=== PATIENT | female | born 1950 | race Caucasian/White ===

== ENCOUNTER 2016-06-04 12:55 | Day surgery (SDC) | payer MEDICARE ==
[~2016-06-04] VITALS: Ht 160 cm; Wt 78.0 kg
[~2016-06-04 12:55] MED LIST: 0.9% Sodium Chloride 1,000 ML IV SCH; ACET1TAB12 PO; ASPI325T32 PO; BUSP5TAB3 PO; CALC-766 PO; CHOL200047 PO; CHOL400T41 PO; ESTR1PAT13 TD; FLUT16SP2 NS; HYDR-3605 PO; HYDR25TA4 PO; KLO1T PO; MELO-253 PO; MULT-1007 PO; MV-M1TAB20 PO; NITR100 PO; OMEG100T PO; OMEP20TA86 PO; PRA20 PO; QUET25TA PO; SERT25TA6 PO; Sodium Chloride LOK Flush 10 mL Syringe IV PRN; UBID10CA4 PO; [UNRECOGNIZED DRUG - CODE] PO; fentaNYL-PF 50 mCg/mL 2 mL Inj IVPUSH PRN
[2016-06-04 13:44] VITALS: BP 137/73; PULSE 79; RESP 14; O2SAT 99
[2016-06-04 15:47] VITALS: BP 129/67; PULSE 89; RESP 16; O2SAT 96
[2016-06-04 15:57] VITALS: BP 146/67; PULSE 79; RESP 16; O2SAT 99
[2016-06-04 16:07] VITALS: BP 134/69; PULSE 84; RESP 16; O2SAT 99
--- NOTE | 2016-06-04 21:31 | ENDO ---
[address] [address] ENDOSCOPY PROCEDURE PATIENT: SHAHID BROWNLEE : 1950 MR#: [id number] ADMIT: 06/04/2016 JOB ID: [id number] PROCEDURE PERFORMED: Esophagogastroduodenoscopy. INDICATION: Dysphagia. Patient with a history of Hadley's esophagus who has undergone a Yohannes fundoplication. She has had ongoing episodic dysphagia since her Yohannes fundoplication. That was performed several years ago. She denies any regurgitation. INSTRUMENT USED: GIF-H180J. The patient's ASA classification is II. Mallampati score is II. MEDICATIONS: 1. Versed 8 mg. 2. Fentanyl 150 mcg. PROCEDURE DETAILS: After informed consent was obtained, the patient was brought into the GI suite, where she was placed on oxygen via nasal cannula and monitored with continuous pulse oximeter, telemetry, and blood pressure monitoring. A time-out was performed. Then, she was placed in a left lateral decubitus position and medications were administered for sedation. A bite block was placed. The standard EGD scope was then inserted through the bite block and advanced without difficulty to the second portion of the duodenum. FINDINGS: 1. Normal-appearing duodenal bulb, first and second portion. 2. Normal-appearing pylorus. 3. In the antrum and body of stomach, there was mild erythema suggestive of gastritis. Multiple random biopsies were obtained. 4. Retroflexed views in the gastric body revealed changes consistent with Yohannes fundoplication. 5. The GE junction was at approximately 40 cm and there were two short tongues of salmon-colored mucosa arising from the GE junction. Multiple biopsies were obtained. The remainder of the esophagus was otherwise unremarkable. IMPRESSION: 1. Changes consistent with prior Yohannes fundoplication. 2. Irregular gastroesophageal junction. RECOMMENDATIONS: Await biopsy results. Continue PPI daily. Proceed to colonoscopy. COMPLICATIONS: None. ESTIMATED BLOOD LOSS: Less than 5 mL. PROCEDURE PERFORMED: Colonoscopy. INDICATION: Colon cancer screening. Please see above for ASA classification, Mallampati score, and medications. INSTRUMENT USED: PCF-H180AL. Prep quality was fair. PROCEDURE DETAILS: After completion of the EGD exam, a digital rectal exam was performed which was unremarkable. The colonoscope was then inserted into the rectum and advanced under direct visualization to the terminal ileum, which was identified by the villous appearing mucosa of terminal ileum and ileocecal valve. Unable to identify appendiceal orifice secondary to severe melanosis coli. Once the cecum was reached, the colonoscope was then withdrawn back into the rectum as the mucosa and lumen were examined. In the rectum, retroflexion was performed. Following retroflexion, remaining air in the rectum was suctioned, and procedure was completed. FINDINGS: 1. Melanosis coli throughout the entire colon and rectum. 2. Three diminutive ascending colon polyps which were removed with cold biopsy forceps. 3. Normal-appearing terminal ileum. IMPRESSION: 1. Three ascending colon polyps. 2. Melanosis coli. RECOMMENDATIONS: Repeat colonoscopy pending polyp pathology results. COMPLICATIONS: None. ESTIMATED BLOOD LOSS: Less than 5 mL. MTDD
--- NOTE | 2016-06-07 13:49 | PATH ---
SURGICAL PATHOLOGY Attending Physician:Honorio Calix CASE STATUS: Signed Out PATIENT NAME: SHAHID BROWNLEE PID: [id number] : 1950 DATE COLLECTED:06/04/2016 22:42 SPECIMEN: 1: Gastric, Biopsy 2: Esophagus, Biopsy 3: Colon, Biopsy CLINICAL HISTORY: 1). GASTRIC BIOPSY 2). DISTAL ESOPHAGUS 3). ASCENDING COLON POLYP X3 FINAL DIAGNOSIS: 1. Gastric Biopsies: Mild chronic gastritis involving antral and fundic mucosa. Negative for evidence of Helicobacter. Negative for intestinal metaplasia. Negative for dysplasia and malignancy. 2. Distal Esophagus Biopsy: Small fragment of gastric cardia-type mucosa with minimal amount of squamous mucosa, negative for specialized metaplasia, Hadley's type esophagus. Negative for dysplasia and malignancy. Eosinophils are not increased. 3. Ascending Colon Polyps: Tubular adenoma involving multiple biopsy fragments. Extensive melanosis coli. ICD10: D12.2 GROSS DESCRIPTION: The specimen is received in three formalin filled containers labeled with the patient's name. 1). The specimen is sublabeled "gastric" and consists of 3 portions of tissue which aggregate to 0.3 x 0.3 x 0.3 CM. The specimen is entirely submitted in cassette 1A. 2). The specimen is sublabeled "distal esophagus" and consists of a 0.1 x 0.1 x 0.1 CM portion of tissue which is entirely submitted in cassette 2A. 3). The specimen is sublabeled "ascending colon polyp X3" and consists of 4 portions of tissue which aggregate to 0.7 x 0.3 x 0.3 CM. The specimen is entirely submitted in cassette 3A. 06/04/2016 [facility] ICD-9 CODES: CPT CODES: 1: 25931 2: 56121 3: 84998 Electronically Signed Out Carson Batista MD [facility] Pathology [facility] [address], [place] [address] Technical component performed at [facility], [facility] [address], [place], [address]
== END 2016-06-04 23:59 | disposition home or self-care (01) ==
LOC: END 12:55
PROVIDERS: ATTEND Internal Medicine Gastroenterology
DX: Z12.11 Encounter for screening for malignant neoplasm of colon (principal); D12.2 Benign neoplasm of ascending colon; K63.89 Other specified diseases of intestine; R47.02 Dysphasia; K29.50 Unspecified chronic gastritis without bleeding; Z98.890 Other specified postprocedural states; Z79.82 Long term (current) use of aspirin
CPT/HCPCS: 43239; 45380; 88305; 99153; G0500; J2250; J7030